=== PATIENT | male | born 1950 | race Caucasian/White ===

== ENCOUNTER → 2021-12-25 09:11 | Outpatient (CLI) | payer OTHER, SELFPAY ==
[2021-12-25 11:29] LABS: COVID19 -Nasal RAPID Negative (Negative)
== END ==
PROVIDERS: PCP Internal Medicine; Visit Provider Surgery
DX: Z20.822 Contact with and (suspected) exposure to COVID-19 (principal); Z01.812 Encounter for preprocedural laboratory examination
CPT/HCPCS: 87635; C9803

== ENCOUNTER 2021-12-28 09:53 | Day surgery (SDC) | payer OTHER, SELFPAY ==
--- NOTE | 2021-12-28 | PATH_ITS ---
[facility] Accession Number: [id number] . 01 Material submitted: . colon - COLON POLYPS ASCENDING AND TRANSVERSE . 01 Diagnosis: Ascending Colon and Transverse Colon Polyps, Biopsy: Tubular adenoma x3. MRV 12/31/2021 1403 Local . 01 Electronically signed: . Keily Whitlock MD, Pathologist NPI- [id number] . 01 Gross description: . The specimen is received in formalin, labeled with the patient's name and colon polyp ascending and transverse, and consists of three irregular allison soft tissue fragments ranging from 0.2 cm to 0.3 cm in greatest dimension. Submitted entirely in cassette A1. ([id number]) /FRR 12/31/2021321 Local . 01 Pathologist provided ICD-10: D12.2, D12.3 . 01 CPT . 001871 Specimen Comment: A courtesy copy of this report has been sent to [phone] Performed at: 01 [facility] [address] [place] [address], [place], [place] [id number] MD Hadley Crocker MD Phone: [phone]
[2021-12-28 10:33] VITALS: BP 131/79; PULSE 50; RESP 16; TEMP 36.6; O2SAT 99; BMI 24.4
--- NOTE | 2021-12-28 10:55 | PM.HP.1 ---
History of Present Illness History of Present Illness Date Patient Seen: 12/28/21 Time Patient Seen: 10:55 Chief complaint: COLONOSCOPY Narrative: Personal history of colon polyps. Patient History Family & Social History Social History: household members spouse Tobacco & Substance use: Smoking Status Never smoker alcohol intake never Substance Use Type does not use Meds Home Medications and Allergies Home Medications Medication Instructions Recorded Confirmed Type calcium citrate 200 mg (950 mg) 20 mg PO DAILY 12/28/21 12/28/21 History tablet clindamycin phosphate 1 % topical 1 applic topical DAILY PRN Rash 12/28/21 12/28/21 History solution duloxetine 60 mg capsule,delayed 60 mg PO DAILY 12/28/21 12/28/21 History release pregabalin 50 mg capsule 50 mg PO DAILY 12/28/21 12/28/21 History sildenafil 100 mg tablet 100 mg PO DAILY PRN Systemic Signs 12/28/21 12/28/21 History And Symptoms valacyclovir 500 mg tablet 500 mg PO DAILY 12/28/21 12/28/21 History Allergies Allergy/AdvReac Type Severity Reaction Status Date / Time latex Allergy Intermediate Blister Verified 12/28/21 10:17 Penicillins Allergy Intermediate Hives Verified 12/28/21 10:15 Sulfa (Sulfonamide Allergy Intermediate Rash Verified 12/28/21 10:17 Antibiotics) Review of Systems Review of Systems ROS: Yes All systems reviewed with the patient and are negative except as otherwise documented Exam Vital Signs (past 8 hours): - 12/28/21 10:33 Temperature 97.9 F Pulse Rate 50 L Respiratory Rate 16 Blood Pressure 131/79 Pulse Oximetry 99 Oxygen Delivery Method Room Air Oxygen Delivery Method Room Air Const General: cooperative HENMT Head: normal to inspection Eyes General: appearance normal, both eyes and all related structures Neck Neck: normal visual inspection Chest Chest: normal inspection of the chest Resp Effort & Inspection: normal respiratory effort Cardio Rate: regular rate GI Inspection: normal to inspection Skin General: no rashes or lesions noted Neuro General: patient alert and patient awake Extrem General: normal to inspection and no pedal edema Psych Appearance: grossly normal Assessment & Plan Assessment & Plan narrative: 71-year-old male with a personal history of colon polyps. Colonoscopy is planned for today. Time Spent With Patient Critical Care time: I spent a total of [] minutes of critical care time on this patient's care today; this time is exclusive of procedural time.
--- NOTE | 2021-12-28 10:56 | PM.PREOP ---
Pre-operative Note COVID-19 COVID-19 status: Negative Result date/Date tested (Pos, Neg/Pending): 12/25/21 Criteria for continued procedure: Possibility delay results in more complex future surgery or treatment Interval Note History & Physical reviewed/Exam performed by Physician: Yes Changes to H&P: No ASA Class (for procedural sedation): II
[2021-12-28] MEDS: SODIUM CHLORIDE 0.9% 1,000 ML 84 ML IV (10:57)
--- NOTE | 2021-12-28 12:06 | PM.OP.COLON ---
Operative Date/Time/Diagnoses Date of procedure: 12/28/21 Time of procedure: 12:06 Pre-op diagnosis: Colon polyps history Post-op diagnosis: same Procedure & Clinicians Study performed: Colonoscopy with cold snare polypectomy and cold forceps polypectomy Same procedure as scheduled: Yes Indications: Colon polyps Surgeon: Abebe Adams Procedure Notes SCOAP/Timeout: Done Procedure in detail: After the risks and benefits were explained, written and verbal informed consent was obtained. The patient was brought into the procedure room and placed into the left lateral decubitus position. Please see nurse squeegee finisher notes for sedation details. Digital rectal examination was accomplished. The scope was introduced into the patient and advanced under direct visualization to the cecum as identified by the appendiceal orifice and ileocecal valve. The scope was slowly withdrawn to carefully examine the mucosa for any defects or lesions. Comprehensive imaging was accomplished throughout the rectum including the dentate line. The colon was decompressed, the scope was then removed from the patient who tolerated the procedure well. Adult colonoscope Bowel prep adequate Scope withdrawal time: 13 minutes Sedation minutes: 28 Complications: none Impression: Very difficult navigation. Redundant colon. Tortuous right and left colon. Diverticulosis was noted in the left colon. In the ascending there was a diminutive polyp removed with cold forceps. In the transverse there was another diminutive polyp removed with cold forceps and a 2nd slightly larger 5 mm polyp removed with cold snare. All of these were submitted together as ?colon polyps?. Grade 3 hemorrhoids were noted on digital exam Endoscopic diagnosis 1. Grade 3 hemorrhoids 2. Diverticulosis 3. Colon polyps Post-procedure Plan for aftercare: 1. Await histopathology 2. Repeat colonoscopy 3 years if all of these are returned adenomatous Disposition: PACU
[2021-12-28 12:10] VITALS: BP 94/70; PULSE 61; RESP 17; TEMP 36.8; O2SAT 98
[2021-12-28 12:16] VITALS: BP 102/64; PULSE 54; RESP 10; O2SAT 99
[2021-12-28 12:20] VITALS: BP 106/70; PULSE 45; RESP 13; O2SAT 99
[2021-12-28 12:26] VITALS: BP 113/76; PULSE 50; RESP 14; TEMP 36.4; O2SAT 99
== END 2021-12-28 12:43 | disposition home or self-care (01) ==
PROVIDERS: PCP Internal Medicine; Referring Provider Internal Medicine Gastroenterology; Visit Provider Internal Medicine Gastroenterology
PROC: 0DJD8ZZ Inspection of Lower Intestinal Tract, Via Natural or Artificial Opening Endoscopic (ICD-10-PCS; CPT 45378; principal; 2021-12-28 11:00)
DX: Z12.11 Encounter for screening for malignant neoplasm of colon (principal); Z86.010 Personal history of colon polyps; G47.33 Obstructive sleep apnea (adult) (pediatric); K57.30 Diverticulosis of large intestine without perforation or abscess without bleeding; K64.2 Third degree hemorrhoids; D12.2 Benign neoplasm of ascending colon; D12.3 Benign neoplasm of transverse colon
CPT/HCPCS: 45385; 45380; J2704

== ENCOUNTER → 2023-07-08 12:44 | Outpatient (CLI) | payer MEDICARE, SELFPAY ==
--- NOTE | 2023-07-08 12:46 | DI.RAD.S_ITS ---
PROCEDURE: XR CHEST 2V INDICATIONS: cough x 2 weeks, Right side congested on exam TECHNIQUE: 2 views of the chest were acquired. COMPARISON: None. FINDINGS: Surgical changes and devices: None. Lungs and pleura: Lungs are clear. No pleural effusions or pneumothorax. Mediastinum: Mediastinal contours are normal. Heart size is normal. Bones and chest wall: No suspicious bony abnormalities. Soft tissues appear unremarkable. IMPRESSION: No acute cardiopulmonary abnormality is seen. Dictated by: Facundo Pimentel M.D. on 07/08/2023 at 13:02 Approved by: Facundo Pimentel M.D. on 07/08/2023 at 13:03
== END ==
PROVIDERS: PCP Internal Medicine; Referring Provider Physician Assistant Medical; Visit Provider Physician Assistant Medical
DX: R05.9 Cough, unspecified (principal)
CPT/HCPCS: 71046

== ENCOUNTER → 2023-12-09 14:04 | Outpatient (CLI) | payer MEDICARE, SELFPAY ==
--- NOTE | 2023-12-09 14:06 | DI.CT.S_ITS ---
PROCEDURE: CT ABDOMEN PELVIS WO CON INDICATIONS: HEMATURIA,HX NEPHROLITHIASIS,URETHRAL PAIN TECHNIQUE: Axial sections were acquired from the lung bases to the pubic symphysis. Coronal and sagittal reformats were performed. For radiation dose reduction, the following was used: automated exposure control, adjustment of mA and/or kV according to patient size. COMPARISON: None. FINDINGS: Image quality: Diagnostic. Lower Chest: No significant findings. URINARY: Right Kidney: No obstructive stones or hydronephrosis but there is a 3 mm lower 3rd collecting system calculus. Right Ureter: No hydroureter. Left Kidney: A middle 3rd 1 cm 1067 Hounsfield units calculus is nonobstructive at the left kidney. Left Ureter: No hydroureter. Bladder: Normal wall thickness. No stones. ABDOMEN: Liver: No contour-deforming solid mass. Gallbladder: No radiopaque gallstones or wall thickening. Biliary ducts: No biliary dilation. Pancreas: No ductal dilation. Spleen: Size is within normal limits. Adrenal Glands: No adrenal nodules. Stomach and Bowel: Normal colonic caliber, without significant wall thickening. Peritoneum: No abnormal intraperitoneal fluid. No free air. Ventral Wall: No hernia. Abdominal Nodes: No enlarged retroperitoneal or mesenteric lymph nodes. Vessels: Aorta and inferior vena cava are normal in size. PELVIS: Pelvic Organs: Unremarkable. Pelvic Nodes: Unremarkable. Miscellaneous: No inguinal hernias are seen. Normal appendix found right lower quadrant. Bones: Unremarkable. IMPRESSION: 3 mm lower 3rd right renal collecting system nonobstructive stone. 1 cm hide density nonobstructive stone within the middle 3rd collecting system of the left kidney. No ureteral or bladder stone or distension. Etiology of reported urethral pain is not identified. Dictated by: Facundo Pimentel M.D. on 12/09/2023 at 16:16 Approved by: Facundo Pimentel M.D. on 12/09/2023 at 16:21
== END ==
PROVIDERS: PCP Internal Medicine; Referring Provider Family Medicine; Visit Provider Family Medicine
DX: N20.0 Calculus of kidney (principal); R31.9 Hematuria, unspecified; R39.89 Other symptoms and signs involving the genitourinary system; Z87.442 Personal history of urinary calculi
CPT/HCPCS: 74176